=== PATIENT | male | born 1985 | race Hispanic/Latino ===

== ENCOUNTER 2018-12-17 07:59 | Day surgery (SDC) | payer BC ==
[2018-12-16 14:48] LABS: Absolute Monocytes 0.7 K/uL (0.1-1.3); Absolute Neutrophil 8.3 K/uL (1.8-8.0); Basophils % 0.4 % (0-1.3); Eosinophils % 1.1 % (0-4.4); Hematocrit 45.8 % (39.6-49.0); Lymphocytes % 17.7 % (15.3-44.8); MPV 7.6 fL (7.6-11.3); RBC Red Blood Cell Count 5.22 M/uL (4.33-5.43)
[2018-12-17] MEDS ORDERED: Ringers Lactate 1,000 ML IV ONE (08:33)
[2018-12-17] MEDS ORDERED: FENTANYL CITR 100 MCG/2 ML ONE ×2 (08:39→09:46)
[2018-12-17] MEDS ORDERED: MIDAZOLAM HCL 2 MG/2 ML INJ ONE (08:39)
[2018-12-17] MEDS ORDERED: PROPOFOL 200 MG/20 ML VIAL IV ONE ×2 (08:39→09:46)
[2018-12-17] MEDS ORDERED: LIDOCAINE 1% MPF 5 ML VIAL ONE ×2 (08:39)
[2018-12-17] MEDS: CEFOXITIN/SWI 1gm 1 GM/10 ML SYR ONE ×2 (09:07→09:15)
[2018-12-17] MEDS ORDERED: KETOROLAC 30 MG/ML INJ ONE (09:51)
[2018-12-17] MEDS ORDERED: ONDANSETRON 4 MG/2 ML VIAL ONE (09:53)
[2018-12-17] MEDS: HYDROMORPHONE HCL 2 MG/ML inj ONE ×2 (10:11→10:22)
[2018-12-17] MEDS ORDERED: PROMETHAZINE 25 MG/ML VIAL ONE (10:25)
[2018-12-17] MEDS ORDERED: HYDROCODONE/APAP 7.5/325 MG TAB ONE (12:24)
--- NOTE | 2018-12-17 13:20 | OP ---
Date of Procedure: 12/17/2018 Surgeon: Dexter Ye MD Preoperative Diagnosis: Perirectal abscess. Postoperative Diagnosis: Infected [id number]. Procedures Performed: Exam under anesthesia, rigid proctoscopy, fistulotomy. Estimated Blood Loss: Minimal. Specimen: None. Findings: As above. Anesthesia: General. Complications: None. Disposition: The patient tolerated the procedure in stable condition, taken to the Recovery in good general condition. Procedure In Detail: The patient was brought to the OR, placed in supine position. General anesthes ia was begun. The patient was prepped and draped in usual sterile fashion in the lithotomy position. Exam under anesthesia revealed a [id number] that had an abscess that had drained already and wa s infected at the posterior midline, and then rigid proctoscopy was performed. No other evidence of disease was identified. Probe was placed into the fistula and then cautery was used to do a fistulot victoria and open up the tract and curette was used to debride all the inflammatory infected tissue. Woun d irrigated. Bleeding controlled with cautery and then the rectal pack consisting of Gel-Foam, Surgi edwin, and dressing gauze placed in the anal canal. Marcaine 0.5% was infiltrated for postop pain cont rol. Sterile dressing was applied. The patient was awakened and taken to Recovery in good general c ondition. The patient will go to Day Surgery and home when stable. Disposition: Home. Condition: Stable. Discharge Instructions: Resume home medicines and diet. Activity as tolerated. No heavy lifting. Remove outer dressing in a.m., sitz bath b.i.d., high-fiber diet. Colace 100 mg p.o. b.i.d., Procto- Med HC 2.5% to anus b.i.d., Metamucil 1 tablespoon p.o. t.i.d., Cipro 500 mg p.o. q.12, Flagyl 500 mg p.o. q.6, Tylenol No. 3 one tablet p.o. q.4 p.r.n. pain. Follow up in my office in 2 weeks. Call f or appointment. ALICIA/KIMBERLY Voice ID: [id number] Report ID: [id number]
== END 2018-12-17 13:07 | disposition home or self-care (01) ==
LOC: OR 07:59
PROVIDERS: ATTEND Surgery
PROC: 0DJD8ZZ Inspection of Lower Intestinal Tract, Via Natural or Artificial Opening Endoscopic (ICD-10-PCS; 2018-12-17)
PROC: 0DQP3ZZ Repair Rectum, Percutaneous Approach (ICD-10-PCS; principal; 2018-12-17 09:00)
DX: K61.1 Rectal abscess (principal)
CPT/HCPCS: 36415; 85025; J1170; J2250; J2405; J2550; J2704; J3010